=== PATIENT | female | born 1965 | race Caucasian/White ===

== ENCOUNTER 2017-02-28 10:04 | Emergency (ER) | payer MEDICAID ==
[~2017-02-28] VITALS: Ht 167.6 cm; Wt 74.0 kg
[2017-02-28 10:11] VITALS: BP 115/75
== END 2017-02-28 11:38 | disposition home or self-care (01) ==
LOC: ED 11:32
DX: S63.501A Unspecified sprain of right wrist, initial encounter (principal); X50.9XXA Other and unspecified overexertion or strenuous movements or postures, initial encounter; Y93.39 Activity, other involving climbing, rappelling and jumping off; Y92.830 Public park as the place of occurrence of the external cause; Y99.8 Other external cause status
CPT/HCPCS: 29125

== ENCOUNTER 2017-05-22 22:31 | Emergency (ER) | payer MEDICAID ==
[~2017-05-22] VITALS: Ht 167.6 cm; Wt 67.3 kg
[2017-05-22 22:32] VITALS: BP 127/75
[2017-05-22] MEDS ORDERED: DEXAMETHASONE 4 MG TABLET ONE (23:04)
[2017-05-22] MEDS ORDERED: DEXAMETHASONE 4 MG TABLET PO STA (23:07)
== END 2017-05-23 00:15 | disposition home or self-care (01) ==
LOC: ED 23:25
DX: J02.0 Streptococcal pharyngitis (principal)
CPT/HCPCS: 99283

== ENCOUNTER 2017-09-15 17:40 | Emergency (ER) | payer MEDICAID, OTHER ==
[~2017-09-15] VITALS: Ht 154.9 cm; Wt 70.0 kg
[2017-09-15 17:42] VITALS: BP 119/79
[2017-09-15] MEDS ORDERED: IBUPROFEN 200 MG TABLET ONE (18:20)
[2017-09-15] MEDS ORDERED: IBUPROFEN 200 MG TABLET PO ONE (18:30)
== END 2017-09-15 19:30 | disposition home or self-care (01) ==
LOC: ED 19:24
DX: S39.012A Strain of muscle, fascia and tendon of lower back, initial encounter (principal); S90.112A Contusion of left great toe without damage to nail, initial encounter; W01.0XXA Fall on same level from slipping, tripping and stumbling without subsequent striking against object, initial encounter; Y93.01 Activity, walking, marching and hiking; Y92.513 Shop (commercial) as the place of occurrence of the external cause; Y99.8 Other external cause status
CPT/HCPCS: 72110; 99284

== ENCOUNTER 2018-11-27 17:30 | Emergency (ER) | payer MEDICAID, OTHER ==
[~2018-11-27] VITALS: Ht 167.6 cm; Wt 68.5 kg
[2018-11-27 17:54] VITALS: BP 137/79
[2018-11-27] MEDS ORDERED: DIPH,PERTUSS(ACELL),TET VAC/PF 0.5 ML IM-VACC ONE ×2 (18:00→18:45)
[2018-11-27] MEDS ORDERED: BACITRACIN ZINC OINT 500U/GM, 0.9 GM ONE (18:45)
== END 2018-11-27 19:45 | disposition home or self-care (01) ==
LOC: ED 19:40
DX: S69.92XA Unspecified injury of left wrist, hand and finger(s), initial encounter (principal); L03.012 Cellulitis of left finger; F17.210 Nicotine dependence, cigarettes, uncomplicated; W23.0XXA Caught, crushed, jammed, or pinched between moving objects, initial encounter; Y93.89 Activity, other specified; Y92.009 Unspecified place in unspecified non-institutional (private) residence as the place of occurrence of the external cause; Y99.8 Other external cause status
CPT/HCPCS: 10060; 90471; 90715

== ENCOUNTER 2018-11-30 15:08 | Emergency (ER) | payer MEDICAID ==
[~2018-11-30] VITALS: Ht 167.6 cm; Wt 68.1 kg
[2018-11-30 15:24] VITALS: BP 116/70
== END 2018-11-30 16:11 | disposition home or self-care (01) ==
LOC: ED 16:00
DX: L03.012 Cellulitis of left finger (principal)
CPT/HCPCS: 99283

== ENCOUNTER 2018-12-14 14:02 | Emergency (ER) | payer MEDICAID ==
[~2018-12-14] VITALS: Ht 167.6 cm; Wt 68.1 kg
[2018-12-14 14:16] VITALS: BP 133/92
[2018-12-14] MEDS ORDERED: IBUPROFEN 200 MG TABLET ONE (14:49)
[2018-12-14] MEDS ORDERED: IBUPROFEN 200 MG TABLET PO ONE (15:00)
== END 2018-12-14 15:37 | disposition home or self-care (01) ==
LOC: ED 15:06
DX: S83.91XA Sprain of unspecified site of right knee, initial encounter (principal); X50.1XXA Overexertion from prolonged static or awkward postures, initial encounter; Y93.89 Activity, other specified; Y92.89 Other specified places as the place of occurrence of the external cause; Y99.8 Other external cause status
CPT/HCPCS: 29505; 99283

== ENCOUNTER 2020-01-09 11:11 | Emergency (ER) | payer MEDICAID ==
[~2020-01-09] VITALS: Ht 167.6 cm; Wt 73.8 kg
[2020-01-09 11:50] VITALS: BP 96/54
--- NOTE | 2020-01-09 12:21 | NUR ---
pt presents to ED with c/o left eye swelling onset this am, pt reports dizziness x1 week. nsr on court recording monitor, rate 60's, no ectopy noted. neuro intact, no focal weakness. pt a&o, resps even and unlabored. VA's completed. EDMD RonyBibber notified of pt c/o dizziness. pt ambulatory with steady gait. instructed RN to dc pt.
== END 2020-01-09 12:29 | disposition home or self-care (01) ==
LOC: ED 12:17
DX: L24.9 Irritant contact dermatitis, unspecified cause (principal)
CPT/HCPCS: 99283; J7512

== ENCOUNTER 2020-01-14 16:47 | Emergency (ER) | payer MEDICAID ==
[~2020-01-14] VITALS: Ht 167.6 cm; Wt 73.5 kg
--- NOTE | 2020-01-14 17:38 | NUR ---
PT TO ROOM 13 PER PEDIS. PT WAS HERE A FEW DAYS AGO WITH SAME CONDITION, AND WAS GIVEN PREDNISONE. PT WAS GOOD WHILE ON PREDNISONE, BUT NOW SINCE SHE FINISHED 2 DAYS AGO, SHE HAS BEGUN TO ITCH AGAIN, AND RASH IS SPREADING FARTHER DOWN HER TORSO TO HER GROIN AREA. PT A/O X3. IN TO SEE PATIENT. AWAITING ORDERS. PT HAS CALL LIGHT WITHIN REACH.
[2020-01-14] MEDS ORDERED: FAMOTIDINE 20 MG TABLET ONE (18:26)
[2020-01-14] MEDS ORDERED: hydrOXyzine 50MG TABLET ONE (18:26)
[2020-01-14] MEDS ORDERED: FAMOTIDINE 20 MG TABLET PO ONE (18:30)
--- NOTE | 2020-01-14 18:35 | NUR ---
MEDICATION ADMINISTERED TO PATIENT VIA PO. ALL MEDICATIONS EXPLAINED TO PATIENT TO INCLUDE USE, DOSE AND SIDE EFFECTS. PT VERBALIZES UNDERSTANDING OF ALL MEDICATIONS BEING ADMINISTERED.
[2020-01-14 18:40] LABS: BASOPHILS # (AUTO) 0.03 x10^3/uL (0-0.1); BASOPHILS % (AUTO) 0 % (0-1); EOSINOPHILS # (AUTO) 0.39 x10^3/uL (0-0.4); EOSINOPHILS % (AUTO) 3 % (1-7); LYMPHOCYTES # (AUTO) 3.51 x10^3/uL (1-3.4); LYMPHOCYTES % (AUTO) 24 % (22-44); MD NO; MEAN CORPUSCULAR HEMOGLOBIN 28.5 pg (27.0-34.8); MEAN CORPUSCULAR HGB CONC 33.4 g/dL (32.4-35.8); MEAN CORPUSCULAR VOLUME 85.3 fL (80-100); MEAN PLATELET VOLUME 8.7 fL (7.4-10.4); MONOCYTES # (AUTO) 1.34 x10^3/uL (0.2-0.8); MONOCYTES % (AUTO) 9 % (2-9); NEUTROPHILS # (AUTO) 9.57 x10^3/uL (1.8-6.8); NEUTROPHILS % (AUTO) 65 % (42-75); PLATELET COUNT 289 x10^3/uL (130-400); RED BLOOD COUNT 4.56 x10^6/uL (3.82-5.3); RED CELL DISTRIBUTION WIDTH 14.6 % (9.6-15.2)
[2020-01-14 18:48] LABS: ALANINE AMINOTRANSFERASE 91 U/L (12-78); ALBUMIN 3.4 g/dL (3.4-5.0); ANION GAP 6 mmol/L (5-15); CALCIUM 8.8 mg/dL (8.5-10.1); CHLORIDE 105 mmol/L (98-107); CREATININE 0.89 mg/dL (0.55-1.02)
[2020-01-14 18:50] LABS: ALKALINE PHOSPHATASE 583 U/L (45-117); BILIRUBIN,TOTAL 0.3 mg/dL (0.2-1.0); TOTAL PROTEIN 8.3 g/dL (6.4-8.2)
--- NOTE | 2020-01-14 19:56 | NUR ---
DISCHARGE INSTRUCTIONS GIVEN TO PATIENT WITH 3 PRESCRIPTIONS. ALL MEDICATIONS PRESCRIBED DISCUSSED WITH PATIENT TO INCLUDE DOSE, USE, DISPOSAL AND SIDE EFFECTS. PT VERBALIZES UNDERSTANDING OF ALL INSTRUCTIONS, MEDICATION USE AND FOLLOW UP. PT AMBULATED OUT OF ED PER PEDIS WITH DAUGHTER.
[2020-01-14 19:58] VITALS: BP 110/58
== END 2020-01-14 19:57 | disposition home or self-care (01) ==
LOC: ED 19:40
DX: R74.9 Abnormal serum enzyme level, unspecified (principal); T78.49XA Other allergy, initial encounter; X58.XXXA Exposure to other specified factors, initial encounter
CPT/HCPCS: 36415; 80053; 85025; 99284; J7512; Q0177